=== PATIENT | female | born 1995 | race Two or more races ===

== ENCOUNTER 2019-03-23 13:35 | Inpatient (IN) | payer OTHER ==
[~2019-03-23] VITALS: Ht 144.8 cm; Wt 73.0 kg
== END 2019-03-26 12:42 | disposition home or self-care (01) | DRG 788 ==
LOC: OB/GYN 13:35 → LDR 13:35 → O/R 16:43 → OB/GYN 18:37
PROVIDERS: ADMIT Obstetrics & Gynecology
PROC: 4A0HXFZ Measurement of Products of Conception, Cardiac Rhythm, External Approach (ICD-10-PCS; 2019-03-23)
PROC: 10D00Z1 Extraction of Products of Conception, Low, Open Approach (ICD-10-PCS; principal; 2019-03-23 15:00)
DX: O82 Encounter for cesarean delivery without indication (principal); O76 Abnormality in fetal heart rate and rhythm complicating labor and delivery; Z3A.38 38 weeks gestation of pregnancy; Z37.0 Single live birth